=== PATIENT | male | born 1955 | race Caucasian/White ===

== ENCOUNTER → 2021-07-05 | Outpatient (CLI) | payer MEDICARE ==
[~2021-07-05] MED LIST: ADVAIR; ALBU17AE3 IH; ALEVE; AMLO-250 PO; AMLO10TA82 PO; AMLO5TAB2 PO; ANEFRIN NSEACH; ASP81TEC PO; BENZ100C18 PO; BIOFREEZE TOPICAL; C250T; CETI-265 PO; CHANTIX; CHLO4TAB36 PO; CYCL5TAB PO; DICY20TA10 PO; DIPH1TAB PO; DIPH1TAB25; DOANS PO; FLUT1DIS26; FLUT1DIS26 IH; FRS325T; GLIP2.5T15 PO; GLIP5TAB13 PO; GLUC1CAP37 PO; HYDR-31; HYDROCODONE; HYZAAR 100/25MG; IBUPROFEN PO; INSU100I29 SQ; KCL10CCR; LEVE1U SQ; LEVO5TAB12 PO; LORA10TA7 PO; LORATAB; LOSA100T57 PO; LOSA1TAB15 PO; LOSA1TAB23 PO; MELO15TA39 PO; METF-478 PO; METF-865 PO; METO50TA7 PO; MNTL10T PO; MONT-40 PO; MTF500T PO; MULT-633 PO; MULT1TAB63; NCT21TD; NYST1POW15 TOP; OMEP20CA12; OMEP20CA12 PO; OMEP20CA6 PO; ORAGEL; OXYM-12 NSEACH; OXYM30SP NS; PNT40TEC PO; POTA20PI IV; PRM25T PO; PROM25TA14 PO; PROP1INH NS; SCR1T1 PO; TIOT18CA INH; TIOT18CA2 IH; TRAM-42 PO; TRAM50TA2 PO; TRM50T; TRM50T PO; TRM50TRX; ZLP10T PO; ZOLP10TA PO; ZOLP10TA5 PO; [UNRECOGNIZED DRUG - CODE] PO; [UNRECOGNIZED DRUG - CODE] PO
--- NOTE | 2021-07-05 17:21 | Diagnostic Imaging Report ---
INDICATION: Shoulder pain status post surgery. EXAMINATION: Right shoulder from 07/05/2021 FINDINGS: 3 views of the shoulder. There is postoperative change with a small metallic plate along the lateral aspect of the proximal humerus. There is severe narrowing and spurring along the glenohumeral joint. Remodeling of the humeral head and glenoid consistent with chronic change. No acute fractures or dislocations appreciated. There are old rib fractures in the mid right lateral ribs, no pneumothorax is appreciated. IMPRESSION: 1. Chronic findings within the right shoulder with no superimposed acute osseous abnormality. 2. Old appearing right rib fractures. Dictated by: Dictated on workstation # [id number]
== END ==
LOC: RAD 14:29
PROVIDERS: ATTEND Family Medicine
DX: M25.511 Pain in right shoulder (principal)
CPT/HCPCS: 73030

== ENCOUNTER → 2022-02-15 | Outpatient (CLI) | payer MEDICARE ==
[2022-02-15 14:11] LABS: HEMATOCRIT 41 % (40-54); HEMOGLOBIN 14.1 g/dL (13.3-17.7); MEAN CORPUSCULAR HEMOGLOBIN 29 pg (25-34); MEAN CORPUSCULAR HGB CONC 35 g/dL (32-36); MEAN CORPUSCULAR VOLUME 84 fL (80-99); MEAN PLATELET VOLUME 9.6 fL (9.0-12.2); PLATELET COUNT 231 10^3/uL (130-400); WHITE BLOOD COUNT 4.8 10^3/uL (4.3-11.0)
[2022-02-15 14:23] LABS: ALBUMIN 4.2 GM/DL (3.2-4.5); POTASSIUM 4.1 MMOL/L (3.6-5.0)
[2022-02-15 14:24] LABS: CALCIUM 9.2 MG/DL (8.5-10.1)
[2022-02-15 14:26] LABS: TOTAL PROTEIN 7.3 GM/DL (6.4-8.2)
[2022-02-15 14:27] LABS: BILIRUBIN,TOTAL 0.5 MG/DL (0.1-1.0)
[2022-02-15 14:29] LABS: CREATININE SERUM 0.85 MG/DL (0.60-1.30)
== END ==
LOC: LAB 13:41
PROVIDERS: ATTEND Family Medicine
DX: E11.9 Type 2 diabetes mellitus without complications (principal); J44.9 Chronic obstructive pulmonary disease, unspecified
CPT/HCPCS: 80053; 80061; 83036; 85027; G0103; 36415; 84153

== ENCOUNTER 2022-06-06 14:02 | Emergency (ER) | payer MEDICARE ==
[~2022-06-06] VITALS: Ht 157 cm; Wt 50.0 kg
[~2022-06-06 14:02] MED LIST changes: -INSU100I29 SQ; +INSU100I30 SQ
[2022-06-06] MEDS ORDERED: EPINEPHrine 0.1 MG/ML 10 ML (HOSPIRA) SYR INJ ONE (14:09)
[2022-06-06] MEDS ORDERED: CALCIUM CHLORIDE 1 GM/10 ML (IMS) SYR INJ ONE (14:09)
[2022-06-06] MEDS ORDERED: EPINEPHrine (PYXIS DRIP KIT ONLY) 1 MG/ML X 4 AMPS ONE (14:15)
[2022-06-06] MEDS ORDERED: NS (IVPB) 250 ML ONE (14:17)
[2022-06-06] MEDS: NOREPINEPHRINE 8 MG/250 ML 250 ML IV STA ×2 (14:20→14:39)
[2022-06-06] MEDS ORDERED: fentaNYL INJ 100 MCG/2 ML AMP ONE (14:26)
[2022-06-06] MEDS ORDERED: HEParin 1000 UNIT/ML (10ML VIAL) FOR BOLUS ONE (14:27)
[2022-06-06] MEDS ORDERED: NITRO DRIP 25000 MCG/D5W 0 ML IV ONE (14:27)
[2022-06-06] MEDS ORDERED: HEParin (CATH LAB) 0 ML IV ONE (14:27)
[2022-06-06] MEDS ORDERED: MIDAZOLAM 5 MG/5 ML (VERSED) VIAL ONE (14:27)
[2022-06-06] MEDS ORDERED: NS IV 1000 ML 0 ML ONE (14:27)
[2022-06-06] MEDS ORDERED: LIDOCAINE 1% INJ 20 ML VIAL ONE (14:27)
[2022-06-06] MEDS ORDERED: NOREPINEPHRINE 8 MG/250 ML 250 ML IV ONE (14:32)
[2022-06-06 14:39] VITALS: BP 68/44
[2022-06-06] MEDS ORDERED: NS IV 1000 ML 1,000 ML ONE (14:59)
--- NOTE | 2022-06-06 15:16 | ED CPR ---
HPI-CPR General Chief Complaint: Code Blue Stated Complaint: POST CODE Nursing Triage Note: ARRIVED VIA EMS FROM HOME AFTER A WITNESS CARDIAC ARREST. CPR NOT INITIATED AT HOME ET STARTED BY EMS UPON THERE ARRIVAL AFTER 10 MINS OF DOWN TIME. EMS TIME TO US APPX 20 MINS. PT WAS SHOCKED BY [facility] BY AN AED. PT WAS IN ASYSTOLE UPON EMS ARRIVAL. X3 EPI, X1 BICARB, ENTUBATED WITH A 7.0 TUBE ET 21 GUMS, BLOOD SUGAR 178, ET IO LEFT LOWER EXT. Source of Information: EMS, Old Records Exam Limitations: Physical Impairments History of Present Illness Date Seen by Provider: Jun 06, 2022 Time Seen by Provider: 14:02 Initial Comments 66-year-old male with unknown past medical history coming in via EMS from home after witnessed cardiac arrest. To minutes of downtime before CPR started. An AED was placed and he did get 1 shock. He got ROSC 1 time, and then he went into another arrest, this time asystole. He received epinephrine 3 times as well as sodium bicarb. They got ROSC prior to arrival. Just over 20 minutes of CPR by EMS services. They were concerned for STEMI on EKG. Further elements of the history and physical were unable to be obtained as the patient was unrespo nsive. They did report his glucose was greater than 150. Allergies and Home Medications Allergies Coded Allergies: penicillin G (Verified Allergy, Mild, ANAPHYLACTIC RX, 09/11/07) Influenza Virus Vaccines (Verified Allergy, Unknown, SEE COMMENT, 12/25/14) PT REPORTS HE IS ALLERGIC TO "LIVE VIRUS" ONLY. HE REPORTS RECEIVEING THE INFLUEZA VACCINATION EVERY YEAR FOR THE PAST SEVERAL YEARS WITH NO REACTION. Patient Home Medication List Home Medication List Reviewed: Yes Albuterol (Proventil) 17 Gm Inh, 2 PUFF IH Q6H PRN for SHORTNESS OF BREATH, (Reported) Entered as Reported by: RUSTY TADEO on 06/30/08 1701 Cetirizine HCl (Cetirizine HCl) 1 Mg/1 Ml Solution, 10 ML PO HS PRN for ALLERGIES, (Reported) Entered as Reported by: KIKI MALDONADO on 12/25/14 1014 Chlorpheniramine Maleate (Chlorpheniramine Maleate) 4 Mg Tablet, 4 MG PO EVERY 4 -6 HOURS PRN for ALLERGIES, (Reported) Entered as Reported by: RICKEY PAREKH on 01/19/15937 Cyclobenzaprine HCl (Cyclobenzaprine HCl) 5 Mg Tablet, 5 MG PO TID PRN for MUSCLE SPASMS, (Reported) Entered as Reported by: RICKEY PAREKH on 01/19/15937 Fluticasone/Salmeterol (Advair 250-50 Diskus) 1 Each Blst.w.dev, 1 PUFF IH BID, (Reported) Entered as Reported by: KIKI MALDONADO on 12/25/14954 Glipizide (Glipizide) 5 Mg Tablet, 1.25 MG PO QID, (Reported) Entered as Reported by: KIKI MALDONADO on 12/25/14 1005 Glucosa Gamble 2Kcl/Chondroitin Gamble (Glucosamine & Chondroitin Cap) 1 Each Capsule, 1 CAP PO BID, (Reported) Entered as Reported by: RICKEY PAREKH on 01/19/15937 Insulin Detemir (Levemir Flextouch) 100 Unit/1 Ml Insuln.pen, 8 UNITS SQ HS, (Reported) Entered as Reported by: KIKI MALDONADO on 12/25/14 1014 Losartan Potassium (Losartan Potassium) 100 Mg Tablet, 100 MG PO HS, (Reported) Entered as Reported by: KIKI MALDONADO on 12/25/14929 Meloxicam (Meloxicam) 15 Mg Tablet, 15 MG PO DAILY @ 1200, (Reported) Entered as Reported by: KIKI MALDONADO on 12/25/14929 Metformin HCl (Metformin HCl ER) 500 Mg Tab.er.24, 500 MG PO BID, (Reported) Entered as Reported by: LULA COULTER on 01/21/16 1844 Metoprolol Succinate (Metoprolol Succinate) 50 Mg Tab.er.24h, 100 MG PO DAILY, (Reported) Entered as Reported by: KIKI MALDONADO on 12/25/14929 Montelukast Sodium (Montelukast Sodium) 10 Mg Tablet, 10 MG PO HS, (Reported) Entered as Reported by: KIKI MALDONADO on 12/25/14929 Multivitamin (Daily Value) 1 Each Tablet, 1 TAB PO DAILY, (Reported) Entered as Reported by: RICKEY PAREKH on 01/19/15937 Promethazine HCl (Promethazine Tablet) 25 Mg Tablet, 25 MG PO Q8H PRN for NAUSEA/VOMITING, (Reported) Entered as Reported by: RICKEY PAREKH on 01/19/15 09 Tiotropium [place] (Spiriva) 1 Inh Aerp, 1 CAP IH DAILY, (Reported) Entered as Reported by: KIKI MALDONADO on 12/25/14 0955 Tramadol HCl (Tramadol HCl) 50 Mg Tablet, 50 MG PO QID PRN for PAIN, (Reported) Entered as Reported by: KIKI MALDONADO on 12/25/14 0959 Tramadol HCl (Ultram) 50 Mg Tablet, 50-100 MG PO Q6H Prescribed by: HALEY HENLEY on 01/25/16 1215 Zolpidem Tartrate (Ambien) 10 Mg Tablet, 5-10 MG PO HS PRN for SLEEP, (Reported) Entered as Reported by: RICKEY PAREKH on 01/19/15 09 [Doans] , 1 TAB PO DAILY, (Reported) Entered as Reported by: RICKEY PAREKH on 01/19/15937 Review of Systems Review of Systems Constitutional: see HPI Past Wtbgixo-Flsukf-Fhntlp Hx Patient Social History Smoking Status: Unknown if Ever Smoked Smokeless Tobacco Frequency: Unknown if Ever Used Use of E-Cig and/or Vaping Bill: Unknown if Ever Used Immunizations Up To Date Tetanus Booster (TDap): More than 5yrs PED Vaccines UTD: Yes Seasonal Allergies Seasonal Allergies: No Past Medical History COPD Currently Using CPAP: No Currently Using BIPAP: No Heart Attack, High Cholesterol, Hypertension Reproductive Disorders: No Hiatal Hernia Chronic Back Pain Diabetes, Non-Insulin dep Cataract Anxiety Adverse Reaction/Blood Tranf: No Family Medical History Dementia 19 MOTHER Diabetes mellitus 19 FATHER FH: cancer G8 BROTHER FHx: schizophrenia G8 BROTHER Physical Exam Vital Signs Vital Signs - First Documented 06/06/22 14:02 Temp 36.0 Pulse 53 Resp 16 B/P (MAP) 113/86 (95) Pulse Ox 97 O2 Delivery Mechanical Ventilator Capillary Refill : Less Than 3 Seconds Height, Weight, BMI Height: 5'7.00" Weight: 172lbs. 0.0oz. [id number]; 20.00 BMI Method:Stated General Appearance: Other (Unresponsive) HEENT: Other (Pupils 5 mm bilaterally and nonreactive) Neck: Normal Inspection Respiratory: Other (Patient intubated with mechanical breath sounds bilaterally) Cardiovascular: Other (Pulseless) Gastrointestinal: Other (Soft and nondistended) Extremity: Other (No swelling or bruising) Neurologic/Psychiatric: Other (Unresponsive) Procedures/Interventions Date of ETT Placement: Jun 06, 2022 Rhythm: Asystole Patient arrived with a pulse, later on got bradycardic and was in PEA arrest. Got ROSC again, he did code again later. He had no gag reflex, ultrasound of the heart with no cardiac activity, pupils fixed and dilated, likely will not have good outcome. Time of was 1442 Progress/Results/Core Measures Results/Orders My Orders Orders - YOANDY CHANDLER MD Epinephrine (Pyxis Drip Kit) (Epinephrin (06/06/22 14:15) Ns (Ivpb) (Sodium Chloride 0.9%) (06/06/22 14:17) Norepinephrine 8 Mg/250 Ml (Norepinephri (06/06/22 14:32) Ns Iv 1000 Ml (Sodium Chloride 0.9%) (06/06/22 14:59) Vital Signs/I&O 06/06/22 14:02 Temp 36.0 Pulse 53 Resp 16 B/P (MAP) 113/86 (95) Pulse Ox 97 O2 Delivery Mechanical Ventilator Blood Pressure Mean: 95 Progress Progress Note : Progress Note 66-year-old male presenting after cardiac arrest. The patient was intubated on arrival. He had a 7 oh ET tube there was 21 at the lip. I confirmed bilateral breath sounds and he had end-tidal CO2 on the monitor in the 30s. Shortly after arrival, became bradycardic and pulseless. CPR was started, we did regain a pulse so an EKG was obtained and on my interpretation there was a STEMI. I immediately called Dr. Grier, the housekeeping/laundry. He evaluated the patient, he thinks it is more a wide-complex tachycardia, called off the STEMI. He wanted t o get an echo, but the patient did code again. At this point, he had received calcium for the wide QRS complex for potential hyperkalemia. Patient was very difficult to obtain IV access, I did with ultrasound guidance. There was very little blood return, I was concerned it was hemolyzed. It was sent for an i- STAT and the potassium was 7.9, likely was hemolyzed. Glucose for EMS was around 170. Eventually once the patient was coding again, his pupils were fixed and dilated, he had no gag reflex, and I was concerned we were not going to have any favorable neurologic outcome. I did a [id number] ultrasound showing no cardiac activity. Time of was 1442. Of note, there is a discrepancy between our avefw-db-[id number] Accu-Chek of 170 and the i-STAT of 44. The i-STAT results came well after the patient's time of was called. Regardless of this result, the patient had no brainstem reflexes on arrival so I do not think any other interventions would have been fruitful. Initial ECG Impression Date: Jun 06, 2022 Initial ECG Impression Time: 14:04 Initial ECG Rate: 75 Initial ECG Rhythm: Normal Sinus Comment Wide QRS at 127, ST elevation anteriorly as well as inferiorly, STEMI was not called because the patient began coding immediately after EKG : EKG Time: 14:14 Rate: 115 Rhythm: Normal Sinus Comment Wide QRS, STEMI was called, later called off by Dr. Grier Departure Impression Primary Impression: Cardiac arrest Disposition: 20 Condition: Departure-Patient Inst. Referrals: [facility] (PCP/Family) Primary Care Physician YOANDY CHANDLER MD Jun 06, 2022 15:16
[2022-06-06] MEDS ORDERED: EPINEPHrine 1 MG INJECTION 4 MG in NS (IVPB) 246 ML IV STA (15:19)
[2022-06-06] MEDS ORDERED: NS IV 1000 ML 1,000 ML IV STA (15:19)
--- NOTE | 2022-06-06 15:19 | Consultation-Cardiology ---
HPI-Cardiology Cardiology Consultation Date of Consultation 06/06/22 Date of Admission Time Seen by Provider: 15:15 Indication: Cardiac arrest HPI 66-year-old gentleman with history of diabetes mellitus, hypertension, hyperlipidemia, hepatitis C and mild coronary artery disease by cardiac catheterization [address] Narayan I was called due to the cardiac arrest, patient was found on the floor at home, 911 was called and EMT arrived after 10 minutes, no CPR done until arrival, required multiple shocks and he was started on epinephrine, regained pulse and lost it more than once. In the emergency room he is intubated, pupils dilated and fixed, nonreactive, no gag reflex. EKG was showing wide-complex tachycardia, underlying right bundle branch block, questionable ST elevation but repeat EKG when his heart rate was better did not show ST elevation. Patient was in hypotensive shock with blood pressure 50 on epinephrine, then has coded again, ACLS protocol was followed and patient was pronounced . Home Medications & Allergies Allergies: Coded Allergies: penicillin G (Verified Allergy, Mild, ANAPHYLACTIC RX, 09/11/07) Influenza Virus Vaccines (Verified Allergy, Unknown, SEE COMMENT, 12/25/14) PT REPORTS HE IS ALLERGIC TO "LIVE VIRUS" ONLY. HE REPORTS RECEIVEING THE INFLUEZA VACCINATION EVERY YEAR FOR THE PAST SEVERAL YEARS WITH NO REACTION. Home Medication List Reviewed: Yes VEY-Undxus-Jcdfhs Hx Patient Social History Drug of Choice: 30 + years ago Smoking Status: Unknown if Ever Smoked Former smoker/When Quit: Oct 28, 2011 Type Used: Cigarettes Recent Hopitalizations: Yes Immunizations Up To Date Tetanus Booster (TDap): More than 5yrs Date of Pneumonia Vaccine: Dec 25, 2014 Date of Influenza Vaccine: Dec 25, 2014 Past Medical History Unable to provide Family Medical History Family History: Dementia 19 MOTHER Diabetes mellitus 19 FATHER FH: cancer G8 BROTHER FHx: schizophrenia G8 BROTHER Review of Systems-General Review of Systems Constitutional: other (Patient has a cardiac arrest) Reviewed Test Results Reviewed Test Results Lab No lab result Physical Exam Physical Exam Vital Signs Vital Signs - First Documented 06/06/22 14:02 Temp 36.0 Pulse 53 Resp 16 B/P (MAP) 113/86 (95) Pulse Ox 97 O2 Delivery Mechanical Ventilator Capillary Refill : Less Than 3 Seconds Height, Weight, BMI Height: 5'7.00" Weight: 172lbs. 0.0oz. [id number]; 20.00 BMI Method:Stated General Appearance: Severe Distress, Thin HEENT: Other (Pupils dilated and fixed) Respiratory: Crackles Cardiovascular: Regular Rate, Rhythm A/P-Cardiology Admission Diagnosis Ventricular fibrillation Cardiac arrest Respiratory failure Cardiogenic shock Assessment/Plan Cardiac arrest, unknown etiology Probably myocardial infarction resulted in ventricular tachycardia/fibrillation cardiac arrest Cardiogenic shock and hypotensive Resuscitation has failed in the emergency room. Anoxic brain injury, dilated pupils. Nonreactive. Respiratory failure ventilator dependent History of diabetes mellitus, hepatitis C, hypertension, hyperlipidemia LAITH DURHAM MD Jun 06, 2022 15:19
== END 2022-06-06 16:44 | disposition expired ==
LOC: EDUNIT# 14:06 → ER 14:08
DX: I46.9 Cardiac arrest, cause unspecified (principal); E87.5 Hyperkalemia; E11.9 Type 2 diabetes mellitus without complications
CPT/HCPCS: 36680; 51702; 93005; 94799; 99291